=== PATIENT | male | born 1985 | race Caucasian/White ===

== ENCOUNTER 2023-04-26 10:54 | Emergency (ER) | payer SELFPAY ==
[~2023-04-26] VITALS: Ht 180.3 cm; Wt 85.3 kg
[2023-04-26 11:03] VITALS: BP_SYST 151; PULSE 105; RESP 16; TEMP 98.3; O2SAT 98
[2023-04-26] MEDS ORDERED: NAPR-688 PO (12:11)
[2023-04-26] MEDS ORDERED: KETOROLAC TROMETHAMINE 60 MG/2 ML VIAL IM ONE (12:15)
== END 2023-04-26 12:26 | disposition home or self-care (01) ==
LOC: SED 10:54
DX: S92.421A Displaced fracture of distal phalanx of right great toe, initial encounter for closed fracture (principal); S93.401A Sprain of unspecified ligament of right ankle, initial encounter; S83.91XA Sprain of unspecified site of right knee, initial encounter; S13.4XXA Sprain of ligaments of cervical spine, initial encounter; Z79.899 Other long term (current) drug therapy; W18.42XA Slipping, tripping and stumbling without falling due to stepping into hole or opening, initial encounter; Y93.89 Activity, other specified; Y92.89 Other specified places as the place of occurrence of the external cause; Y99.8 Other external cause status
CPT/HCPCS: 99284; 73564; 73610; 73630; 96372; J1885